=== PATIENT | male | born 1970 | race Caucasian/White ===

== ENCOUNTER 2017-11-05 06:16 | Inpatient (IN) ==
[2017-11-05] MEDS ORDERED: Clindamycin 900 mg/NS Premix 900 MG/50 ML PIGGYBACK IV.SIG ONE (07:19)
[2017-11-05 07:47] LABS: Baso % (Auto) 0.5 % (0.0-2.0); Eos # (Auto) 0.1 th/mm3 (0.0-0.4); Eos % (Auto) 1.4 % (0.0-4.0); Hematocrit 43.8 % (39.0-51.0); Hemoglobin 15.2 gm/dL (13.0-17.0); Lymph # (Auto) 0.9 th/mm3 (1.0-4.8); Lymph % (Auto) 9.7 % (9.0-44.0); Mean Corpuscular HGB Conc 34.8 % (32.0-36.0); Mean Corpuscular Volume 94.8 fL (80.0-100.0); Mean Platelet Volume 7.4 fL (7.0-11.0); Mono % (Auto) 11.1 % (0.0-8.0); Neut # (Auto) 7.3 th/mm3 (1.8-7.7); Neut % (Auto) 77.3 % (16.0-70.0); Platelet Count 217 th/mm3 (150-450); Red Blood Count 4.62 mil/mm3 (4.50-5.90); Red Cell Distribution Width 13.1 % (11.6-17.2); White Blood Count 9.4 th/mm3 (4.0-11.0)
[2017-11-05 08:10] LABS: Calcium 9.4 mg/dL (8.5-10.1); Carbon Dioxide 29.3 meq/L (21.0-32.0); Potassium 4.6 meq/L (3.5-5.1)
[2017-11-05] MEDS ORDERED: Temazepam 15 MG Capsule PO PRN (08:15)
[2017-11-05] MEDS ORDERED: Bisacodyl 10 MG Supp RECTAL PRN (08:15)
[2017-11-05 08:57] LABS: Eosinophils 1 % (0-4); Lymphocytes 13 % (9-44); Monocytes 7 % (0-8)
[2017-11-05 08:58] LABS: Platelet Estimate Normal (Normal); Platelet Morphology Normal (Normal)
[2017-11-05] MEDS: ceFAZolin Inj 2,000 MG in Sodium Chlor 0.9% Inj 80 ML IV.SIG SCH ×2 (09:34→19:46)
[2017-11-05] MEDS ORDERED: Naloxone Inj 0.4 MG/ML Vial IV.PUSH PRN (09:34)
--- NOTE | 2017-11-05 09:43 | P.HPIM ---
History of Present Illness Primary Care Physician: Taras Hemphill DO History of Present Illness: 47-year-old male with a 3-pack-year history of smoking who presents with a 3 day history of sudden onset worsening right medial thigh cellulitis. Patient came to the ER on 11/03, abscess was incised and drained, discharged on Bactrim, however culture subsequently has grown strep pyogenes. Patient reports constant sharp pain of right medial thigh, nonradiating. Patient endorses unmeasured fevers over the past 3 days with lightheadedness today. Inpatient Certification: I certify that the inpatient services were ordered in accordance with Medicare regulations governing the order. This includes certification that hospital inpatient services are reasonable and necessary and in the case of services not specified as inpatient-only under 42 CFR 419.22(n), that they are appropriately provided as inpatient services in accordance to with the 2-midnight benchmark under 43 CFR 412.3(e) Estimated Total Length of Stay (Days): 2 Plans for Post Hospital Care: Home Review of Systems All other systems reviewed negative except as stated in HPI [facility] - History History Provided By: Patient - Medical History Medical History: Medical History (Last Updated 11/05/17 @ 06:49 by Angella Riddle) Hypertension (Acute) - Surgical History Surgical History: Surgical History (Last Updated 11/05/17 @ 06:49 by Angella Riddle) Hx of tonsillectomy (Acute) - Family History Family History: Family History (Last Updated 11/05/17 @ 09:40 by Fran Cordero MD) Mother Diabetes Father Prostate CA - Tobacco History Second Hand Smoke Exposure: Yes Tobacco Use In Past 30 Days: Yes Smoking Status: Current every day smoker Tobacco Type: Cigarettes - Alcohol History How Often Do You Have a Drink Containing Alcohol: 2 to 4 times a month - Substance Use History Substance History: No History of Abuse - Travel History Recent Travel in the [place] Within the Last 8 Weeks: No Recent Travel Out of the Country Within the Last 8 Weeks: No - Immunization History Tetanus Immunization: <5 Years Hx Influenza Vaccine This Season: Yes Medications and Allergies Active Medications: Active Medications Hydrocodone Bitart/Acetaminophen ([place] 5/325) 1 tab PO Q4H PRN PRN Reason: PAIN SCALE 3 TO 5 Hydrocodone Bitart/Acetaminophen ([place] 7.5/325) 1 tab PO Q4H PRN PRN Reason: PAIN SCALE 6 TO 10 Al Hydroxide/Mg Hydroxide (Milk Of Magnesia Liq) 30 ml PO Q12H PRN PRN Reason: Mild Constipation Bisacodyl (Dulcolax Supp) 10 mg RECTAL DAILY PRN PRN Reason: SEVERE CONSITIPATION Cefazolin Sodium 2,000 mg/ (Sodium Chloride) 100 mls @ 200 mls/hr IV.SIG Q8H ROSIO Last Admin: 11/05/17 09:34 Dose: 200 mls/hr Lactulose (Lactulose Liq) 30 ml PO DAILY PRN PRN Reason: SEVERE CONSITIPATION Naloxone HCl (Narcan Inj) 0.4 mg IV.PUSH UNSCH PRN PRN Reason: SEE LABEL COMMENTS Sennosides (Senokot) 17.2 mg PO Q12H PRN PRN Reason: Moderate Constipation Temazepam (Restoril) 15 mg PO HS PRN PRN Reason: INSOMNIA Allergies Allergy/AdvReac Type Severity Reaction Status Date / Time No Known Allergies Allergy Verified 11/05/17 06:36 Home Medications Medication Instructions Recorded Confirmed Type No Known Home Medications 11/03/17 11/05/17 History Exam Vital signs: Vital Signs 11/05/17 06:36 11/05/17 06:51 Temperature 98.2 F 98 F Pulse Rate 84 82 Respiratory Rate 18 20 Blood Pressure 151/95 H 148/90 H Pulse Oximetry 99 98 Intake & Output 11/04/17 11/05/17 11/05/17 18:59 06:59 18:59 Intake Total 50 / 50 Balance 50 / 50 Weight 81.647 kg Intake: IV 50 / 50 Cleocin 900 mg/NS Premix 900 mg 50 / 50 In 50 ml @ 100 mls/hr IV.SIG ONCE ONE Rx#:[id number] Narrative: GENERAL: Bed. Appears comfortable. Alert and oriented 3. SKIN: Warm and dry. HEAD: Atraumatic. Normocephalic. EYES: Pupils equal and round. No scleral icterus. No injection or drainage. ENT: No nasal bleeding or discharge. Mucous membranes pink and moist. NECK: Trachea midline. No JVD. CARDIOVASCULAR: Regular rate and rhythm. RESPIRATORY: No accessory muscle use. Clear to auscultation. Breath sounds equal bilaterally. GASTROINTESTINAL: Abdomen soft, non-tender, nondistended. Hepatic and splenic margins not palpable. MUSCULOSKELETAL: Extremities without clubbing, cyanosis, or edema. No obvious deformities. Patient has right medial thigh abscess with previous border is marked, however erythema has extended beyond borders. Roughly 12 x 15 cm. Erythema does not extend beyond thigh. Does not involve groin. NEUROLOGICAL: Awake and alert. No obvious cranial nerve deficits. Motor grossly within normal limits. Five out of 5 muscle strength in the arms and legs. Normal speech. PSYCHIATRIC: Appropriate mood and affect; insight and judgment normal. Results - Labs CBC & Chem 7: 11/05/17 07:37 11/05/17 07:37 Labs: Short CBC 11/05/17 Range/Units 07:37 WBC 9.4 (4.0-11.0) th/mm3 Hgb 15.2 (13.0-17.0) gm/dL Hct 43.8 (39.0-51.0) % Plt Count 217 (150-450) th/mm3 [facility] 11/05/17 07:37 Sodium 140 Potassium 4.6 Chloride 108 H Carbon Dioxide 29.3 BUN 15 Creatinine 0.96 Calcium 9.4 Caprini VTE Risk Assessment Caprini VTE Risk Assessment: No/Low Risk (score <= 1) Caprini Risk Assessment Model: Point Value = 1 Point Value = 2 Point Value = 3 Point Value = 5 Age 41-60 Minor surgery BMI > 25 kg/m2 Swollen legs Varicose veins or History of unexplained or recurrent spontaneous Oral contraceptives or hormone replacement Sepsis (< 1 month) Serious lung disease, including pneumonia (< 1 month) Abnormal pulmonary function Acute myocardial infarction Congestive heart failure (< 1 month) History of inflammatory bowel disease Medical patient at bed rest Age 61-74 Arthroscopic surgery Major open surgery (> 45 min) Laparoscopic surgery (> 45 min) Malignancy Confined to bed (> 72 hours) Immobilizing plaster cast Central venous access Age >= 75 History of VTE Family history of VTE Factor V Leiden Prothrombin [id number] Lupus anticoagulant Anticardiolipin antibodies Elevated serum homocysteine Heparin-induced thrombocytopenia Other congenital or acquired thrombophilia Stroke (< 1 month) Elective arthroplasty Hip, pelvis, or leg fracture Acute spinal cord injury (< 1 month) Prophylaxis Regimen: Total Risk Factor Score Risk Level Prophylaxis Regimen 0-1 Low Early ambulation 2 Moderate Order ONE of the following: *Sequential Compression Device (SCD) *Heparin 5000 units SQ BID 3-4 Higher Order ONE of the following medications: *Heparin 5000 units SQ TID *Enoxaparin/Lovenox 40 mg SQ daily (WT < 150 kg, CrCl > 30 mL/min) *Enoxaparin/Lovenox 30 mg SQ daily (WT < 150 kg, CrCl > 10-29 mL/min) *Enoxaparin/Lovenox 30 mg SQ BID (WT < 150 kg, CrCl > 30 mL/min) AND/OR *Sequential Compression Device (SCD) 5 or more Highest Order ONE of the following medications: *Heparin 5000 units SQ TID (Preferred with Epidurals) *Enoxaparin/Lovenox 40 mg SQ daily (WT < 150 kg, CrCl > 30 mL/min) *Enoxaparin/Lovenox 30 mg SQ daily (WT < 150 kg, CrCl > 10-29 mL/min) *Enoxaparin/Lovenox 30 mg SQ BID (WT < 150 kg, CrCl > 30 mL/min) AND *Sequential Compression Device (SCD) Assessment and Plan - Plan //Right medial thigh abscess. Failure of outpatient treatment. -Worsening on outpatient treatment. Failed Bactrim, however this is strep. -We will start on scheduled IV cefazolin. -Pain meds ordered //Tobacco abuse. Cessation counseling provided //DVT prophylaxis. SCDs. Discharge Planning: Home when improved.
--- NOTE | 2017-11-05 10:27 | ED ---
HPI General Chief complaint: Skin/Abscess/Foreign Body Stated complaint: Skin/recheck Time Seen by Provider: 11/05/17 07:00 Source: patient, family and old records reviewed Mode of arrival: ambulatory Limitations: no limitations History of Present Illness HPI narrative: Patient is a previously healthy 47-year-old male, who presents with complaint of worsening skin infection and abscess. He states that several days ago he felt a sting on his right upper thigh, then developed swelling and erythema with warmth. He was seen here several days ago, where he had abscess drained and was sent home on Bactrim. He states that it has continued to worsen despite several days of Bactrim at home. He denies fever, chills, IV drug use. complaint: abscess/boil Onset (ago): day(s) Location: RLE Severity: moderate Quality: aching Pain Consistency: constant Relieving factors: none Exacerbating factors: palpation Context: none Associated symptoms: denies other symptoms Treatments prior to arrival: antibiotic Related Data Home Medications Medication Instructions Recorded Confirmed No Known Home Medications 11/03/17 11/05/17 Previous Rx's Medication Instructions Recorded ibuprofen 800 mg PO Q6-8H PRN #20 tab 11/03/17 sulfamethoxazole-trimethoprim 1 tab PO BID 10 Days #20 tab 11/03/17 [Bactrim DS] Allergies Allergy/AdvReac Type Severity Reaction Status Date / Time No Known Allergies Allergy Verified 11/05/17 06:36 Review of Systems Except as stated in HPI: all other systems reviewed are negative Constitutional Denies chills and Denies fever(s) Eyes Denies photophobia ENT Denies dental pain Cardiovascular Denies chest pain Respiratory Denies dyspnea Gastrointestinal Denies abdominal pain Genitourinary Denies scrotal swelling Musculoskeletal Denies back pain Neurologic Denies headache(s) [facility] Medical History Medical History Hypertension (Acute) Surgical History Surgical History Hx of tonsillectomy (Acute) Family History Family History Mother Diabetes Father Prostate CA Social History Social History Substance History: No History of Abuse Second Hand Smoke Exposure: Yes Smoking Status: Current every day smoker Tobacco Type: Cigarettes How Often Do You Have a Drink Containing Alcohol: 2 to 4 times a month Recent Travel in [facility] within the Last 8 Weeks: No Recent Out of Country Travel within the Last 8 Weeks: No Immunization History Tetanus Immunization: <5 Years Hx Influenza Vaccine This Season: Yes Exam Narrative Exam Narrative: GENERAL: Well-appearing male in no acute distress, breathing comfortably on room air SKIN: Focused skin assessment warm/dry. Right upper thigh with market erythema outside the previously drawn line, induration with packing where previous abscess was drained. No crepitus, bulla. HEAD: Atraumatic. Normocephalic. EYES: Pupils equal and round. No scleral icterus. No injection or drainage. ENT: No nasal bleeding or discharge. Mucous membranes pink and moist. NECK: Trachea midline. No JVD. CARDIOVASCULAR: Regular rate and rhythm. No murmur appreciated. RESPIRATORY: No accessory muscle use. Clear to auscultation. Breath sounds equal bilaterally. GASTROINTESTINAL: Abdomen soft, non-tender, nondistended. Hepatic and splenic margins not palpable. MUSCULOSKELETAL: No obvious deformities. No clubbing. No cyanosis. No edema. NEUROLOGICAL: Awake and alert. No obvious cranial nerve deficits. Motor grossly within normal limits. Normal speech. PSYCHIATRIC: Appropriate mood and affect; insight and judgment normal. Course Initial Documented Vital Signs Temperature 98.2 F 11/05/17 06:36 Pulse Rate 84 11/05/17 06:36 Respiratory Rate 18 11/05/17 06:36 Blood Pressure 151/95 H 11/05/17 06:36 Pulse Oximetry 99 11/05/17 06:36 Last Documented Vital Signs Temperature 98 F 11/05/17 06:51 Pulse Rate 82 11/05/17 06:51 Respiratory Rate 20 11/05/17 06:51 Blood Pressure 148/90 H 11/05/17 06:51 Pulse Oximetry 98 11/05/17 06:51 Medical Decision Making [facility] Narrative Medical decision making narrative: Patient is a 47-year-old male who presents with complaint of worsening cellulitis and abscess despite being on Bactrim for several days after her drainage. There is no crepitus or bulla. He appears well with a normal white blood cell count. He has been admitted to the hospitalist, Dr. Cordero, for IV antibiotics as he has failed outpatient treatment. Differential Diagnosis Differential Diagnosis: Differential diagnosis includes but is not limited to cellulitis, worsening abscess, necrotizing fasciitis. Medical Records Medical records reviewed: Yes I reviewed the patient's medical records. Records review recent arrival to the ED, where he had an I&D, Lab Data Lab results reviewed: Yes I reviewed the patient's lab results. Lab results narrative: Labs unremarkable. Result diagrams: 11/05/17 07:37 11/05/17 07:37 Lab Results 11/05/17 11/05/17 Range/Units 07:37 07:37 WBC 9.4 (4.0-11.0) th/mm3 RBC 4.62 (4.50-5.90) mil/mm3 Hgb 15.2 (13.0-17.0) gm/dL Hct 43.8 (39.0-51.0) % MCV 94.8 (80.0-100.0) fL MCH 33.0 (27.0-34.0) pg MCHC 34.8 (32.0-36.0) % RDW 13.1 (11.6-17.2) % Plt Count 217 (150-450) th/mm3 MPV 7.4 (7.0-11.0) fL Prelim Diff (Auto) Slide review pending Neut % (Auto) 77.3 H (16.0-70.0) % Lymph % (Auto) 9.7 (9.0-44.0) % [place] % (Auto) 11.1 H (0.0-8.0) % Eos % (Auto) 1.4 (0.0-4.0) % Baso % (Auto) 0.5 (0.0-2.0) % Neut # (Auto) 7.3 (1.8-7.7) th/mm3 Lymph # (Auto) 0.9 L (1.0-4.8) th/mm3 [place] # (Auto) 1.0 H (0.0-0.9) th/mm3 Eos # (Auto) 0.1 (0.0-0.4) th/mm3 Baso # (Auto) 0.0 (0.0-0.2) th/mm3 WBC Differential Manual diff final Seg Neuts % (Manual) 76 H (16-70) % Band Neuts % (Manual) 3 (0-6) % Lymphocytes % (Manual) 13 (9-44) % Monocytes % (Manual) 7 (0-8) % Eosinophils % (Manual) 1 (0-4) % Abs Neuts (Manual) 7.4 (1.8-7.7) th/mm3 Differential Comment . Platelet Estimate Normal (Normal) Platelet Morphology Normal (Normal) Sodium 140 (136-145) meq/L Potassium 4.6 (3.5-5.1) meq/L Chloride 108 H (98-107) meq/L Carbon Dioxide 29.3 (21.0-32.0) meq/L Anion Gap 3 L (5-15) meq/L BUN 15 (7-18) mg/dL Creatinine 0.96 (0.60-1.30) mg/dL Estimated GFR 84 L (>89) mL/min Random Glucose 91 (74-106) mg/dL Calcium 9.4 (8.5-10.1) mg/dL Discharge Plan Discharge Disposition Patient Disposition: 30 Still Patient Discharge Condition Condition: Stable Discharge Details Diagnosis: Cellulitis and abscess of right leg Physicians Team ED Provider: Elizabeth Del Rosario Primary Care Provider: Taras Hemphill Attending Provider: Fran Cordero Status ED Status: Admitted Patient
[2017-11-05] MEDS ORDERED: Morphine Inj 4 MG/ML Vial IV.PUSH ONE (14:00)
--- NOTE | 2017-11-05 20:50 | P.PN ---
Subjective Interval history: F/u extremity abscess Physical Exam Vital signs: Vital Signs 11/05/17 06:36 11/05/17 06:51 11/05/17 10:41 Temperature 98.2 F 98 F Pulse Rate 84 82 83 Respiratory Rate 18 20 16 Blood Pressure 151/95 H 148/90 H 124/72 Pulse Oximetry 99 98 99 11/05/17 12:00 11/05/17 16:11 11/05/17 18:08 Temperature 98.3 F 98.1 F Pulse Rate 73 80 Respiratory Rate 16 16 Blood Pressure 138/89 146/90 H 142/84 H Pulse Oximetry 98 97 Intake & Output 11/05/17 11/05/17 11/06/17 06:59 18:59 06:59 Intake Total 150 / 150 Balance 150 / 150 Weight 81.647 kg 81.647 kg Intake: IV 150 / 150 Cleocin 900 mg/NS Premix 900 mg 50 / 50 In 50 ml @ 100 mls/hr IV.SIG ONCE ONE Rx#:[id number] Ancef Inj 2,000 MG In NS Inj 80 100 / 100 ML @ 200 mls/hr IV.SIG Q8H ROSIO Rx#:[id number] Other: Weight On Admission 81.647 kg Narrative: GENERAL: Appears comfortable. Alert and oriented 3. SKIN: Warm and dry. CARDIOVASCULAR: Regular rate and rhythm. RESPIRATORY: No accessory muscle use. Clear to auscultation. Breath sounds equal bilaterally. GASTROINTESTINAL: Abdomen soft, non-tender, nondistended. MUSCULOSKELETAL: Extremities without clubbing, cyanosis, or edema. No obvious deformities. Patient has right medial thigh abscess with previous border is marked, however erythema has extended beyond borders. Roughly 12 x 15 cm. Erythema does not extend beyond thigh. Does not involve groin. NEUROLOGICAL: Awake and alert. No obvious cranial nerve deficits. Motor grossly within normal limits. Five out of 5 muscle strength in the arms and legs. Normal speech. Results - Labs CBC & Chem 7: 11/05/17 07:37 11/05/17 07:37 Laboratory Results - last 24 hr 11/05/17 11/05/17 07:37 07:37 WBC 9.4 RBC 4.62 Hgb 15.2 Hct 43.8 MCV 94.8 MCH 33.0 MCHC 34.8 RDW 13.1 Plt Count 217 MPV 7.4 Prelim Diff (Auto) Slide review pending Neut % (Auto) 77.3 H Lymph % (Auto) 9.7 [place] % (Auto) 11.1 H Eos % (Auto) 1.4 Baso % (Auto) 0.5 Neut # (Auto) 7.3 Lymph # (Auto) 0.9 L [place] # (Auto) 1.0 H Eos # (Auto) 0.1 Baso # (Auto) 0.0 WBC Differential Manual diff final Seg Neuts % (Manual) 76 H Band Neuts % (Manual) 3 Lymphocytes % (Manual) 13 Monocytes % (Manual) 7 Eosinophils % (Manual) 1 Abs Neuts (Manual) 7.4 Differential Comment . Platelet Estimate Normal Platelet Morphology Normal Sodium 140 Potassium 4.6 Chloride 108 H Carbon Dioxide 29.3 Anion Gap 3 L BUN 15 Creatinine 0.96 Estimated GFR 84 L Random Glucose 91 Calcium 9.4 Assessment and Plan - Plan //Right medial thigh abscess. Failure of outpatient treatment. -Worsening on outpatient treatment. Failed Bactrim, however this is strep. -Ct scheduled IV cefazolin. -Pain meds ordered //Tobacco abuse. Cessation counseling provided //DVT prophylaxis. SCDs.
[2017-11-06] MEDS: ceFAZolin Inj 2,000 MG in Sodium Chlor 0.9% Inj 80 ML IV.SIG SCH ×2 (01:56→10:53)
[2017-11-06 08:23] LABS: Calcium 9.4 mg/dL (8.5-10.1); Carbon Dioxide 30.8 meq/L (21.0-32.0); Potassium 4.5 meq/L (3.5-5.1)
[2017-11-06] MEDS: ceFAZolin 2 GM Premix Inj 2 GM/50 ML PIGGYBACK IV.SIG SCH ×2 (09:58→18:26)
--- NOTE | 2017-11-06 10:09 | P.PN ---
Subjective Interval history: Follow-up right thigh abscess Patient doing okay. Counseled regarding narcotics. Patient was tolerating ibuprofen prior to admission. Discussed with general surgery for bedside I&D. Physical Exam Vital signs: Vital Signs 11/05/17 10:41 11/05/17 12:00 11/05/17 16:11 Temperature 98.3 F Pulse Rate 83 73 Respiratory Rate 16 16 Blood Pressure 124/72 138/89 146/90 H Pulse Oximetry 99 98 11/05/17 18:08 11/05/17 20:00 11/06/17 00:00 Temperature 98.1 F 98.5 F 98.3 F Pulse Rate 80 80 79 Respiratory Rate 16 17 16 Blood Pressure 142/84 H 141/87 H 133/88 Pulse Oximetry 97 96 98 11/06/17 04:00 11/06/17 08:00 Temperature 98.4 F 97.6 F Pulse Rate 77 80 Respiratory Rate 16 14 Blood Pressure 134/85 139/82 Pulse Oximetry 99 97 Intake & Output 11/05/17 11/06/17 11/06/17 18:59 06:59 18:59 Intake Total 150 / 150 200 / 200 Balance 150 / 150 200 / 200 Weight 81.647 kg Intake: IV 150 / 150 200 / 200 Cleocin 900 mg/NS Premix 900 mg 50 / 50 In 50 ml @ 100 mls/hr IV.SIG ONCE ONE Rx#:[id number] Ancef Inj 2,000 MG In NS Inj 80 100 / 100 200 / 200 ML @ 200 mls/hr IV.SIG Q8H ROSIO Rx#:[id number] Other: # Voids 2 Weight On Admission 81.647 kg Narrative: GENERAL: Bed. Appears comfortable. Alert and oriented 3. SKIN: Warm and dry. CARDIOVASCULAR: Regular rate and rhythm. RESPIRATORY: No accessory muscle use. Clear to auscultation. Breath sounds equal bilaterally. GASTROINTESTINAL: Abdomen soft, non-tender, nondistended. MUSCULOSKELETAL: Extremities without clubbing, cyanosis, or edema. No obvious deformities. Dry dressing right medial thigh. NEUROLOGICAL: Awake and alert. No obvious cranial nerve deficits. Motor grossly within normal limits. Five out of 5 muscle strength in the arms and legs. Normal speech. Results - Labs CBC & Chem 7: 11/05/17 07:37 11/06/17 06:53 Laboratory Results - last 24 hr 11/06/17 06:53 Sodium 141 Potassium 4.5 Chloride 105 Carbon Dioxide 30.8 Anion Gap 5 BUN 12 Creatinine 0.98 Estimated GFR 82 L Random Glucose 80 Calcium 9.4 Assessment and Plan - Plan //Right medial thigh abscess. Failure of outpatient treatment. -Worsening on outpatient treatment. Failed Bactrim, however this is strep. -Ct scheduled IV cefazolin. -Pain management with ibuprofen and Lortab. Counseled regarding narcotics -Consult general surgery for repeat I&D //Tobacco abuse. Cessation counseling provided //DVT prophylaxis. SCDs.
[2017-11-06] MEDS ORDERED: Ibuprofen 600 MG Tablet PO PRN (11:32)
--- NOTE | 2017-11-06 12:21 | P.CONGS ---
[facility] Gen Surgery Consult Note Consult date: 11/06/17 Reason for consult: other (right thigh abscess) Requesting physician: Patrick Deonna Narrative: 47 yo M developed right thigh pain and swelling last week and presented to ED on Sunday at which time he underwent I&D of right upper inner thigh abscess. He was discharged home on Bactrim. Microbiology grew Strep pyogenes. He had spreading of the erythema and subjective fevers over the last few days and presented again to the ED yesterday morning. He was admitted and started on IV ancef. He states that now the erythema has improved somewhat. Review of Systems All other systems reviewed negative except as stated in [facility] PMFSH - History History Provided By: Patient - Medical History Medical History: Medical History (Last Reviewed 11/05/17 @ 10:24 by Elizabeth Del Rosario MD) Hypertension (Acute) - Surgical History Surgical History: Surgical History (Last Reviewed 11/05/17 @ 10:24 by Elizabeth Del Rosario MD) Hx of tonsillectomy (Acute) - Family History Family History: Family History (Last Reviewed 11/05/17 @ 10:24 by Elizabeth Del Rosario MD) Mother Diabetes Father Prostate CA - Tobacco History Second Hand Smoke Exposure: Yes Tobacco Use In Past 30 Days: Yes Smoking Status: Current every day smoker Tobacco Type: Cigarettes - Alcohol History How Often Do You Have a Drink Containing Alcohol: 4 or more times a week - Substance Use History Substance History: No History of Abuse - Travel History Recent Travel in the [place] Within the Last 8 Weeks: Yes Recent Travel Out of the Country Within the Last 8 Weeks: No - Immunization History Tetanus Immunization: <5 Years Hx Influenza Vaccine This Season: Yes Medications and Allergies Active Medications: Active Medications Hydrocodone Bitart/Acetaminophen ([place] 7.5/325) 1 tab PO Q4H PRN PRN Reason: PAIN SCALE 6 TO 10 Last Admin: 11/06/17 02:04 Dose: 1 tab Al Hydroxide/Mg Hydroxide (Milk Of Magnesia Liq) 30 ml PO Q12H PRN PRN Reason: Mild Constipation Bisacodyl (Dulcolax Supp) 10 mg RECTAL DAILY PRN PRN Reason: SEVERE CONSITIPATION Cefazolin Sodium/Dextrose (Ancef 2 Gm Premix Inj) 2 gm in 50 mls @ 200 mls/hr IV.SIG Q8H [facility] Last Infusion: 11/06/17 10:13 Dose: Infused Lactulose (Lactulose Liq) 30 ml PO DAILY PRN PRN Reason: SEVERE CONSITIPATION Naloxone HCl (Narcan Inj) 0.4 mg IV.PUSH UNSCH PRN PRN Reason: SEE LABEL COMMENTS Sennosides (Senokot) 17.2 mg PO Q12H PRN PRN Reason: Moderate Constipation Temazepam (Restoril) 15 mg PO HS PRN PRN Reason: INSOMNIA Allergies Allergy/AdvReac Type Severity Reaction Status Date / Time No Known Allergies Allergy Verified 11/05/17 06:36 Home Medications Medication Instructions Recorded Confirmed Type No Known Home Medications 11/03/17 11/05/17 History Exam Vital signs: Vital Signs 11/05/17 16:11 11/05/17 18:08 11/05/17 20:00 Temperature 98.1 F 98.5 F Pulse Rate 80 80 Respiratory Rate 16 17 Blood Pressure 146/90 H 142/84 H 141/87 H Pulse Oximetry 97 96 11/06/17 00:00 11/06/17 04:00 11/06/17 08:00 Temperature 98.3 F 98.4 F 97.6 F Pulse Rate 79 77 80 Respiratory Rate 16 16 14 Blood Pressure 133/88 134/85 139/82 Pulse Oximetry 98 99 97 Intake & Output 11/05/17 11/06/17 11/06/17 18:59 06:59 18:59 Intake Total 150 / 150 200 / 200 50 / 50 Balance 150 / 150 200 / 200 50 / 50 Weight 81.647 kg Intake: IV 150 / 150 200 / 200 50 / 50 Cleocin 900 mg/NS Premix 900 mg 50 / 50 In 50 ml @ 100 mls/hr IV.SIG ONCE ONE Rx#:[id number] Ancef 2 GM Premix Inj 2 gm In 50 / 50 50 ml @ 200 mls/hr IV.SIG Q8H [facility] Rx#:[id number] Ancef Inj 2,000 MG In NS Inj 80 100 / 100 200 / 200 ML @ 200 mls/hr IV.SIG Q8H [facility] Rx#:[id number] Other: # Voids 2 Weight On Admission 81.647 kg Narrative: GENERAL: Awake and alert. No acute distress. Cooperative. HEAD: Normocephalic. Atraumatic. EYES: Pupils equal round and reactive to light bilaterally. No scleral icterus. ENT: Moist oral mucosa. NECK: Trachea midline. CHEST: Nonlabored breathing. No respiratory distress EXTREMITIES: No cyanosis or edema. SKIN: Right upper inner thigh 12cm area of mild erythema, no induration; smaller 5x5 cm area of a mass with some purulent drainage from previous incision , mildly indurated Results - Labs 11/05/17 07:37 11/06/17 06:53 Abnormal lab results 11/06/17 Range/Units 06:53 Estimated GFR 82 L (>89) mL/min Diabetes panel 11/06/17 Range/Units 06:53 Sodium 141 (136-145) meq/L Potassium 4.5 (3.5-5.1) meq/L Chloride 105 (98-107) meq/L Carbon Dioxide 30.8 (21.0-32.0) meq/L BUN 12 (7-18) mg/dL Creatinine 0.98 (0.60-1.30) mg/dL Calcium 9.4 (8.5-10.1) mg/dL Calcium panel 11/06/17 Range/Units 06:53 Calcium 9.4 (8.5-10.1) mg/dL Pituitary panel 11/06/17 Range/Units 06:53 Sodium 141 (136-145) meq/L Potassium 4.5 (3.5-5.1) meq/L Chloride 105 (98-107) meq/L Carbon Dioxide 30.8 (21.0-32.0) meq/L BUN 12 (7-18) mg/dL Creatinine 0.98 (0.60-1.30) mg/dL Calcium 9.4 (8.5-10.1) mg/dL Adrenal panel 11/06/17 Range/Units 06:53 Sodium 141 (136-145) meq/L Potassium 4.5 (3.5-5.1) meq/L Chloride 105 (98-107) meq/L Carbon Dioxide 30.8 (21.0-32.0) meq/L BUN 12 (7-18) mg/dL Creatinine 0.98 (0.60-1.30) mg/dL Calcium 9.4 (8.5-10.1) mg/dL All other labs normal. Assessment and Plan - Assessment (1) Cellulitis and abscess of right leg Code(s): L03.115 - Cellulitis of right lower limb; L02.415 - Cutaneous abscess of right lower limb Status: Acute - Plan Repeat I&D performed at bedside by me, please see separate note. This looks like an infected sebaceous cyst. Recommend packing changes daily. Likely ok for dc home tomorrow and can follow up with me in 5 days after discharge. Discussed Condition With: Dr. Yign
--- NOTE | 2017-11-06 12:24 | P.PCN ---
Date of procedure: 11/06/17 Pre-op diagnosis: Right thigh abscess Post-op diagnosis: same Procedure: Incision and drainage of right thigh abscess 4x4 cm Patient remained in his bed in the emergency department. After informed consent was obtained, the right upper inner thigh was prepped. Lidocaine was injected in the skin and subcutaneous tissue overlying the abscess adjacent to the site of previous incision. Incision was extended about 3 cm. A moderate amount of purulent drainage was expressed. There was also thick material commonly found in sebaceous cysts which was expressed. All loculations were broken up. The cavity was flushed with normal saline. Iodoform packing and a sterile dressing were applied. The patient tolerated the procedure well. Anesthesia: local Surgeon: Deacon Milligan Estimated blood loss (mL): 10 Pathology: none sent Condition: stable Disposition: floor
--- NOTE | 2017-11-06 13:21 | P.PNWCN ---
Wound Care Nurse Consult Description: Consult for wound management of right thigh per Dr Cordero Communicated with: Dr Ying Recommendation: Consult general sx for I&D Additional information: Patient seen in F pod for previous post I&D with failed outpatient therapy. Wound/Pressure Injury - Wound Right thigh Wound Assessment: Admission Requested from Provider a Wound Care Consult: Yes (Dr Cordero) Length: 0.3 (cm) Width: 1 (cm) Depth: 0.2 (cm) Wound Bed Appearance: Red Surrounding Tissue Appearance: Erythema, Indurated Surrounding Tissue Temperature: Warm Drainage Amount: None Drainage Odor: No Odor Dressing Status: Changed Cleansing Solution: Saline Primary Dressing: Maxorb AG Cover Dressing: Optifoam gentle Wound Dressing Change Date: 11/06/17
[2017-11-06] MEDS ORDERED: HYDROmorphone PF Inj 1 MG/ML Ampul IV.PUSH PRN (20:00)
[2017-11-06] MEDS: HYDROmorphone PF Inj 2 MG/ML Vial IV.PUSH PRN (22:49)
[2017-11-07] MEDS: ceFAZolin 2 GM Premix Inj 2 GM/50 ML PIGGYBACK IV.SIG SCH ×2 (02:49→09:54)
[2017-11-07] MEDS: HYDROmorphone PF Inj 2 MG/ML Vial IV.PUSH PRN (12:20)
--- NOTE | 2017-11-07 15:29 | P.DS ---
Date of admission: 11/05/17 08:15 Primary care physician: Taras Hemphill DO Brief History from admission: 47-year-old male with a 3-pack-year history of smoking who presents with a 3 day history of sudden onset worsening right medial thigh cellulitis. Patient came to the ER on 11/03, abscess was incised and drained, discharged on Bactrim, however culture subsequently has grown strep pyogenes. Patient reports constant sharp pain of right medial thigh, nonradiating. Patient endorses unmeasured fevers over the past 3 days with lightheadedness today. DS: Diagnosis - Discharge Diagnosis (1) Abscess of right thigh Status: Acute DS: Medications - Discharge Medications Prescriptions: cephalexin [Keflex] 500 mg PO QID #28 cap DS: Summary Hospital Course: //Right medial thigh abscess. Failure of outpatient treatment with Bactrim. This is improved status post bedside I&D by general surgery. Clinically stable for discharge switch to p.o. Keflex status post cefazolin. Pain management with ibuprofen and Lortab. Counseled regarding narcotics. Patient just wants ibuprofen after discharge. Continue wound care with daily iodoform packing he refuses home care visiting nurse wants his to be trained //Tobacco abuse. Cessation counseling provided //DVT prophylaxis. SCDs. - Time Spent with Patient Total time spent providing and/or coordinating discharge services: - Quality: VTE Deep Vein Thrombosis/Pulmonary Embolism Present on Admission: No Exam Vital signs: Vital Signs 11/06/17 16:00 11/06/17 20:00 11/06/17 23:49 Temperature 97.6 F 98.5 F 98.7 F Pulse Rate 84 75 64 Respiratory Rate 16 16 17 Blood Pressure 140/91 H 142/97 H 155/100 H Pulse Oximetry 97 96 11/07/17 03:34 11/07/17 08:22 11/07/17 11:38 Temperature 98.8 F 97.7 F 98.4 F Pulse Rate 73 67 77 Respiratory Rate 16 18 16 Blood Pressure 142/86 H 129/89 150/95 H Pulse Oximetry 96 98 Intake & Output 11/06/17 11/07/17 11/07/17 18:59 06:59 18:59 Intake Total 100 / 100 50 / 50 50 / 50 Balance 100 / 100 50 / 50 50 / 50 Intake: IV 100 / 100 50 / 50 50 / 50 Ancef 2 GM Premix Inj 2 gm In 100 / 100 50 / 50 50 / 50 50 ml @ 200 mls/hr IV.SIG Q8H [facility] Rx#:[id number] Narrative: GENERAL: Bed. Appears comfortable. Alert and oriented 3. SKIN: Warm and dry. CARDIOVASCULAR: Regular rate and rhythm. RESPIRATORY: No accessory muscle use. Clear to auscultation. Breath sounds equal bilaterally. GASTROINTESTINAL: Abdomen soft, non-tender, nondistended. MUSCULOSKELETAL: Extremities without clubbing, cyanosis, or edema. No obvious deformities. Dry dressing right medial thigh with incised wound packed with iodoform. NEUROLOGICAL: Awake and alert. No obvious cranial nerve deficits. Motor grossly within normal limits. Five out of 5 muscle strength in the arms and legs. Normal speech. Results Procedures completed during hospitalization: Bedside I&D of right medial thigh abscess Discharge Plan - Discharge Disposition Patient Disposition: 01 Discharge Home - Discharge Condition Condition: Stable - Discharge Order Discharge Orders: Discharge Order (Routine); Ordered 11/07/17 Ordered By: Patrick Ying General Surgery Clear for Discharge (Routine); Ordered 11/07/17 Ordered By: Deacon Milligan - Physicians Team Primary Care Provider: Taras Hemphill Attending Provider: Patrick Ying Other Providers: Deacon Milligan MD
[2017-11-07 15:44] VITALS: BP 153/102; PULSE 87; RESP 20; TEMP 98.7; O2SAT 99
== END 2017-11-07 17:30 | disposition home or self-care (01) ==
LOC: NEPC 06:16 → NEDA 08:15 → NEPFCDU 12:35
PROVIDERS: ADMIT Internal Medicine; ATTEND Internal Medicine